=== PATIENT | female | born 1955 | race Caucasian/White ===

== ENCOUNTER 2018-10-13 11:30 | Inpatient (IN) | payer OTHER ==
[~2018-10-13] VITALS: Ht 167.6 cm; Wt 113.5 kg
[2018-10-13 13:13] VITALS: BP 148/65
[2018-10-13 13:14] LABS: BASOPHILS % (AUTO) 0.4 % (0.0-5.0); EOSINOPHILS % (AUTO) 1.3 % (0.0-8.0); HEMATOCRIT 37.3 % (36-48); LYMPHOCYTES % (AUTO) 19.6 % (21.0-51.0); MEAN CORPUSCULAR HEMOGLOBIN 27.3 pg (27.0-33.0); MEAN CORPUSCULAR HGB CONC 31.8 g/dL (32.0-36.0); MONOCYTES % (AUTO) 4.1 % (3.0-13.0); NEUTROPHILS % (AUTO) 74.6 % (40.0-77.0); PLATELET COUNT (AUTO) 245 K/uL (130-400); RED BLOOD CELL COUNT(AUTO) 4.33 MIL/uL (4.00-5.50); RED CELL DISTRIBUTION WIDTH 14.8 % (11.0-15.5); WHITE BLOOD COUNT (AUTO) 12.8 K/uL (4.8-10.8)
[2018-10-13 13:27] LABS: CREATININE 0.7 mg/dL (0.5-1.5); POTASSIUM 3.5 mmol/L (3.5-5.1)
[2018-10-13 13:29] LABS: INR 0.85 (0.85-1.15)
[2018-10-13] MEDS ORDERED: MONT10TA21 PO (15:23)
[2018-10-13] MEDS ORDERED: ROPI3TAB PO (15:23)
[2018-10-13] MEDS ORDERED: VENL75CA55 PO (15:23)
[2018-10-13] MEDS ORDERED: ESOMEPRAZOLE PO (15:23)
[2018-10-13] MEDS ORDERED: BUDE10.2 IH (15:23)
[2018-10-13] MEDS ORDERED: FLUTICASONE NASAL (15:23)
[2018-10-13] MEDS ORDERED: AMLO-334 PO (15:23)
[2018-10-13] MEDS ORDERED: SPIRIVA IH (15:23)
[2018-10-13] MEDS ORDERED: FEXO180T94 PO (15:23)
[2018-10-19] VITALS (28 sets, daily range): BP systolic 118–150; BP diastolic 45–83
[2018-10-19] MEDS: CEFAZOLIN SODIUM 1 GM VIAL IVP SCH ×4 (05:00→20:27)
[2018-10-19] MEDS ORDERED: LACTATED RINGERS 1000ML 1,000 ML IV ONE (09:06)
[2018-10-19] MEDS ORDERED: ROPIVACAINE 0.5% 5MG/ML 30ML IJ ONE ×2 (09:24→13:12)
[2018-10-19] MEDS ORDERED: KETAMINE 50MG/ML SYRINGE 50 MG/ML DISP.SYRIN IV ONE (09:25)
[2018-10-19] MEDS ORDERED: PROPOFOL 1000 MG/100 ML 100 ML IV ONE (09:28)
[2018-10-19] MEDS ORDERED: PROPOFOL 10 MG/ML 20ML VIAL IV ONE ×3 (09:35→12:15)
[2018-10-19] MEDS ORDERED: ROCURONIUM 10MG/1ML SYR 10 MG/ML ML ONE ×2 (09:36→10:53)
[2018-10-19] MEDS ORDERED: SUCCINYLCHOLINE CHLORIDE 20 MG/ML 10 ML VIAL ONE (09:36)
[2018-10-19] MEDS ORDERED: TRANEXAMIC ACID 1000MG/10ML IV ONE ×2 (09:40→13:36)
[2018-10-19] MEDS ORDERED: MIDAZOLAM HCL 1 MG/ML 2ML VIAL ONE (09:52)
[2018-10-19] MEDS ORDERED: FENTANYL CITRATE PF 50 MCG/1 ML 2ML VIAL ONE ×2 (09:52→12:30)
[2018-10-19] MEDS ORDERED: HYDROMORPHONE 1 MG/1 ML AMP ONE (12:36)
[2018-10-19] MEDS ORDERED: GLYCOPYRROLATE 1 MG/5 ML SYRINGE ONE (12:41)
[2018-10-19] MEDS ORDERED: NEOSTIGMINE 5MG/5ML SYR IV ONE (12:41)
[2018-10-19] MEDS ORDERED: SODIUM CHLORIDE 0.9% 1000ML 1,000 ML IV SCH (13:01)
[2018-10-19] MEDS ORDERED: LIDOCAINE HCL 2% 20ML ONE (13:11)
[2018-10-19] MEDS ORDERED: DiphenhydrAMINE HCL 50 MG/ML VIAL IVP PRN (13:15)
[2018-10-19] MEDS ORDERED: ONDANSETRON HCL 4 MG/2 ML VIAL IVP PRN (13:15)
[2018-10-19] MEDS ORDERED: CALCIUM CARBONATE 500 MG TABLET PO PRN (13:15)
[2018-10-19] MEDS ORDERED: TRAMADOL HCL 50 MG TABLET PO PRN (13:15)
[2018-10-19] MEDS ORDERED: OXYCODONE HCL 5 MG TAB PO PRN (13:15)
[2018-10-19] MEDS ORDERED: MEPERIDINE-PF 25 MG/ML SYG ONE (13:27)
[2018-10-19] MEDS: OXYCODONE HCL 5 MG TAB PO PRN ×2 (14:58→23:20)
[2018-10-19] MEDS: MONTELUKAST SODIUM 10 MG TAB PO SCH (20:33)
[2018-10-19] MEDS: APIXABAN 2.5 MG TABLET PO SCH (20:33)
[2018-10-19] MEDS: PREGABALIN 25 MG CAP PO SCH (20:36)
[2018-10-19] MEDS: ROPINIROLE HCL 1 MG TABLET PO SCH (20:36)
[2018-10-20] MEDS: CEFAZOLIN SODIUM 1 GM VIAL IVP SCH (02:45)
[2018-10-20] MEDS: OXYCODONE HCL 5 MG TAB PO PRN ×5 (03:05→22:00)
[2018-10-20 03:10] VITALS: BP 137/70
[2018-10-20 06:01] LABS: HEMATOCRIT 33.6 % (36-48); MEAN CORPUSCULAR HEMOGLOBIN 28.3 pg (27.0-33.0); MEAN CORPUSCULAR HGB CONC 32.8 g/dL (32.0-36.0); MEAN CORPUSCULAR VOLUME 86.3 fL (79-99); PLATELET COUNT (AUTO) 258 K/uL (130-400); RED BLOOD CELL COUNT(AUTO) 3.89 MIL/uL (4.00-5.50); RED CELL DISTRIBUTION WIDTH 15.2 % (11.0-15.5); WHITE BLOOD COUNT (AUTO) 12.3 K/uL (4.8-10.8)
[2018-10-20] MEDS: SPIRIVA 1.25 MCG IH SCH (06:10)
[2018-10-20] MEDS ORDERED: PRED10TA3 PO (06:13)
[2018-10-20] MEDS: FLUTICASONE PROPIONATE 50MCG/SPRAY 16 GM BOTTLE NS SCH (06:13)
[2018-10-20 06:18] LABS: CREATININE 0.8 mg/dL (0.5-1.5); POTASSIUM 4.1 mmol/L (3.5-5.1)
[2018-10-20] MEDS: PREDNISONE 10 MG TABLET PO SCH (08:55)
[2018-10-20] MEDS: VENLAFAXINE HCL 75 MG TAB PO SCH (08:56)
[2018-10-20] MEDS: PREGABALIN 25 MG CAP PO SCH ×2 (08:57→20:46)
[2018-10-20] MEDS: PANTOPRAZOLE SODIUM 40 MG TABLET.DR PO SCH (08:57)
[2018-10-20] MEDS: APIXABAN 2.5 MG TABLET PO SCH ×2 (08:58→20:46)
[2018-10-20] MEDS: POLYETHYLENE GLYCOL 3350 17 GM POWD.PACK PO SCH (08:58)
[2018-10-20] MEDS: LORATADINE 10 MG TABLET PO SCH (09:00)
[2018-10-20] MEDS: SYMBICORT 160-4.5 MCG INHALER IH SCH ×2 (09:00→20:46)
[2018-10-20] MEDS: AMLODIPINE VALSARTAN PO SCH (09:00)
[2018-10-20] MEDS: MORPHINE SULFATE 4 MG/1ML SYG IV PRN (09:05)
[2018-10-20 11:48] VITALS: BP 159/80
[2018-10-20 16:00] VITALS: BP 149/73
[2018-10-20 19:10] VITALS: BP 135/65
[2018-10-20] MEDS: ROPINIROLE HCL 1 MG TABLET PO SCH (20:47)
[2018-10-20] MEDS: MONTELUKAST SODIUM 10 MG TAB PO SCH (20:47)
[2018-10-20] MEDS: ZOLPIDEM TARTRATE 5 MG TAB PO PRN (22:54)
[2018-10-20 23:05] VITALS: BP 140/62
[2018-10-21] MEDS: MORPHINE SULFATE 4 MG/1ML SYG IV PRN (00:24)
[2018-10-21 03:15] VITALS: BP 154/68
[2018-10-21 04:14] LABS: BASOPHILS % (AUTO) 0.9 % (0.0-5.0); EOSINOPHILS % (AUTO) 1.9 % (0.0-8.0); HEMATOCRIT 30.4 % (36-48); LYMPHOCYTES % (AUTO) 30.9 % (21.0-51.0); MEAN CORPUSCULAR HEMOGLOBIN 27.7 pg (27.0-33.0); MEAN CORPUSCULAR HGB CONC 32.5 g/dL (32.0-36.0); MEAN CORPUSCULAR VOLUME 85.3 fL (79-99); NEUTROPHILS % (AUTO) 58.3 % (40.0-77.0); PLATELET COUNT (AUTO) 203 K/uL (130-400); RED BLOOD CELL COUNT(AUTO) 3.56 MIL/uL (4.00-5.50); RED CELL DISTRIBUTION WIDTH 14.8 % (11.0-15.5); WHITE BLOOD COUNT (AUTO) 11.9 K/uL (4.8-10.8)
[2018-10-21 04:27] LABS: CREATININE 0.8 mg/dL (0.5-1.5)
[2018-10-21] MEDS: CEFAZOLIN SODIUM 1 GM VIAL IVP SCH (05:00)
[2018-10-21 08:00] VITALS: BP 145/61
[2018-10-21] MEDS: VENLAFAXINE HCL 75 MG TAB PO SCH (08:50)
[2018-10-21] MEDS: LORATADINE 10 MG TABLET PO SCH (08:50)
[2018-10-21] MEDS: APIXABAN 2.5 MG TABLET PO SCH ×2 (08:50→20:29)
[2018-10-21] MEDS: POLYETHYLENE GLYCOL 3350 17 GM POWD.PACK PO SCH (08:50)
[2018-10-21] MEDS: OXYCODONE HCL 5 MG TAB PO PRN ×3 (08:51→20:36)
[2018-10-21] MEDS: AMLODIPINE VALSARTAN PO SCH (08:51)
[2018-10-21] MEDS: PREGABALIN 25 MG CAP PO SCH (08:52)
[2018-10-21] MEDS: FLUTICASONE PROPIONATE 50MCG/SPRAY 16 GM BOTTLE NS SCH (09:00)
[2018-10-21] MEDS: PANTOPRAZOLE SODIUM 40 MG TABLET.DR PO SCH (09:00)
[2018-10-21] MEDS: SPIRIVA 1.25 MCG IH SCH (09:00)
[2018-10-21] MEDS: PREDNISONE 10 MG TABLET PO SCH (09:00)
[2018-10-21] MEDS: SYMBICORT 160-4.5 MCG INHALER IH SCH ×2 (09:00→21:00)
[2018-10-21 11:00] VITALS: BP 122/62
[2018-10-21 16:00] VITALS: BP 117/54
[2018-10-21 19:05] VITALS: BP 118/60
[2018-10-21] MEDS: MONTELUKAST SODIUM 10 MG TAB PO SCH (20:29)
[2018-10-21] MEDS: ROPINIROLE HCL 1 MG TABLET PO SCH (21:00)
[2018-10-21] MEDS: ZOLPIDEM TARTRATE 5 MG TAB PO PRN (22:07)
[2018-10-21 23:55] VITALS: BP 136/73
[2018-10-22] MEDS: OXYCODONE HCL 5 MG TAB PO PRN ×3 (02:06→19:42)
[2018-10-22 03:15] VITALS: BP 134/73
[2018-10-22] MEDS: CEFAZOLIN SODIUM 1 GM VIAL IVP SCH (04:03)
[2018-10-22 04:48] LABS: BASOPHILS % (AUTO) 0.8 % (0.0-5.0); EOSINOPHILS % (AUTO) 3.3 % (0.0-8.0); HEMATOCRIT 29.1 % (36-48); LYMPHOCYTES % (AUTO) 23.3 % (21.0-51.0); MEAN CORPUSCULAR HEMOGLOBIN 28.8 pg (27.0-33.0); MEAN CORPUSCULAR HGB CONC 33.8 g/dL (32.0-36.0); MEAN CORPUSCULAR VOLUME 85.2 fL (79-99); MONOCYTES % (AUTO) 7.1 % (3.0-13.0); NEUTROPHILS % (AUTO) 65.5 % (40.0-77.0); PLATELET COUNT (AUTO) 200 K/uL (130-400); RED BLOOD CELL COUNT(AUTO) 3.41 MIL/uL (4.00-5.50); RED CELL DISTRIBUTION WIDTH 14.6 % (11.0-15.5); WHITE BLOOD COUNT (AUTO) 10.1 K/uL (4.8-10.8)
[2018-10-22 04:57] LABS: CREATININE 0.6 mg/dL (0.5-1.5); POTASSIUM 4.1 mmol/L (3.5-5.1)
[2018-10-22 07:00] VITALS: BP 134/73
[2018-10-22] MEDS: FLUTICASONE PROPIONATE 50MCG/SPRAY 16 GM BOTTLE NS SCH (09:00)
[2018-10-22] MEDS: PREDNISONE 10 MG TABLET PO SCH (09:00)
[2018-10-22] MEDS: SYMBICORT 160-4.5 MCG INHALER IH SCH ×2 (09:00→20:00)
[2018-10-22] MEDS: PANTOPRAZOLE SODIUM 40 MG TABLET.DR PO SCH (09:00)
[2018-10-22] MEDS: SPIRIVA 1.25 MCG IH SCH (09:00)
[2018-10-22] MEDS: AMLODIPINE VALSARTAN PO SCH (09:00)
[2018-10-22] MEDS: VENLAFAXINE HCL 75 MG TAB PO SCH (09:24)
[2018-10-22] MEDS: POLYETHYLENE GLYCOL 3350 17 GM POWD.PACK PO SCH (09:24)
[2018-10-22] MEDS: APIXABAN 2.5 MG TABLET PO SCH ×2 (09:25→20:02)
[2018-10-22] MEDS: LORATADINE 10 MG TABLET PO SCH (09:25)
[2018-10-22 11:00] VITALS: BP 133/54
[2018-10-22] MEDS ORDERED: BISACODYL 10 MG SUPP.RECT RC PRN (13:15)
[2018-10-22 16:00] VITALS: BP 124/72
[2018-10-22 19:20] VITALS: BP 124/54
[2018-10-22] MEDS: ROPINIROLE HCL 1 MG TABLET PO SCH (20:00)
[2018-10-22] MEDS: MONTELUKAST SODIUM 10 MG TAB PO SCH (20:02)
[2018-10-22 23:00] VITALS: BP 123/59
[2018-10-23] MEDS: OXYCODONE HCL 5 MG TAB PO PRN ×2 (00:11→07:45)
[2018-10-23 03:00] VITALS: BP 132/59
[2018-10-23] MEDS: CEFAZOLIN SODIUM 1 GM VIAL IVP SCH (04:09)
[2018-10-23 07:50] VITALS: BP 125/60
[2018-10-23] MEDS: LORATADINE 10 MG TABLET PO SCH (08:53)
[2018-10-23] MEDS: PANTOPRAZOLE SODIUM 40 MG TABLET.DR PO SCH (08:53)
[2018-10-23] MEDS: POLYETHYLENE GLYCOL 3350 17 GM POWD.PACK PO SCH (08:53)
[2018-10-23] MEDS: VENLAFAXINE HCL 75 MG TAB PO SCH (08:53)
[2018-10-23] MEDS: APIXABAN 2.5 MG TABLET PO SCH (08:53)
[2018-10-23] MEDS: PREDNISONE 10 MG TABLET PO SCH (08:53)
== END 2018-10-23 10:10 | disposition home or self-care (01) | DRG 470 ==
LOC: EDSTATUS 11:30 → DAHIP 10-19 08:28 → 4AH 10-19 13:36
PROVIDERS: ADMIT Orthopaedic Surgery; ATTEND Orthopaedic Surgery
PROC: 0SRD0J9 Replacement of Left Knee Joint with Synthetic Substitute, Cemented, Open Approach (ICD-10-PCS; principal; 2018-10-19 10:12)
PROC: 3E0T3BZ Introduction of Anesthetic Agent into Peripheral Nerves and Plexi, Percutaneous Approach (ICD-10-PCS; 2018-10-19 10:12)
DX: M17.12 Unilateral primary osteoarthritis, left knee (principal); Z68.41 Body mass index [BMI] 40.0-44.9, adult; I10 Essential (primary) hypertension; F32.9 Major depressive disorder, single episode, unspecified; G25.81 Restless legs syndrome; G47.00 Insomnia, unspecified; J45.909 Unspecified asthma, uncomplicated; M65.9 Synovitis and tenosynovitis, unspecified; E66.01 Morbid (severe) obesity due to excess calories; M77.11 Lateral epicondylitis, right elbow; Z82.0 Family history of epilepsy and other diseases of the nervous system; Z82.3 Family history of stroke; Z82.49 Family history of ischemic heart disease and other diseases of the circulatory system; Z88.8 Allergy status to other drugs, medicaments and biological substances
CPT/HCPCS: 36415; 71045; 80048; 85025; 85027; 85610; 85730; 86850; 86900; 86901; 88305; 88311; 93005; 97039; J0330; J0690; J1170; J2175; J2250; J2270; J2704; J2710; J2795; J3010; J3490; J7030; J7120; J7512

== ENCOUNTER 2019-09-02 10:15 | Emergency (ER) | payer OTHER ==
[~2019-09-02 10:15] MED LIST: AMLO-334 PO; BUDE10.2 IH; ESOMEPRAZOLE PO; FEXO180T94 PO; FLUTICASONE NASAL; MONT10TA21 PO; ROPI3TAB PO; SPIRIVA IH; VENL75CA55 PO
== END 2019-09-02 11:15 | disposition home or self-care (01) ==
LOC: EDH 10:15
DX: S90.31XA Contusion of right foot, initial encounter (principal); I10 Essential (primary) hypertension; J45.909 Unspecified asthma, uncomplicated; Z90.49 Acquired absence of other specified parts of digestive tract; Z88.8 Allergy status to other drugs, medicaments and biological substances; W20.8XXA Other cause of strike by thrown, projected or falling object, initial encounter; Y93.89 Activity, other specified; Y92.89 Other specified places as the place of occurrence of the external cause; Y99.8 Other external cause status
CPT/HCPCS: 73630

== ENCOUNTER → 2019-09-07 | Outpatient (CLI) | payer OTHER | END | disposition home or self-care (01) | LOC: RAH 14:45 | PROVIDERS: ATTEND Internal Medicine | DX: Z12.31 Encounter for screening mammogram for malignant neoplasm of breast (principal) | CPT/HCPCS: 77067 ==

== ENCOUNTER → 2020-09-08 | Outpatient (CLI) | payer OTHER ==
[~2020-09-08] MED LIST changes: -AMLO-334 PO; +AMLO-389 PO
== END | disposition home or self-care (01) ==
LOC: RAH 15:22
PROVIDERS: ATTEND Internal Medicine
DX: Z12.31 Encounter for screening mammogram for malignant neoplasm of breast (principal); N64.89 Other specified disorders of breast
CPT/HCPCS: 77067

== ENCOUNTER 2021-02-12 07:35 | Day surgery (SDC) | payer OTHER ==
[2021-02-09 13:16] LABS: BASOPHILS % (AUTO) 0.4 % (0.0-5.0); EOSINOPHILS % (AUTO) 3.3 % (0.0-8.0); HEMATOCRIT 37.7 % (36-48); LYMPHOCYTES % (AUTO) 28.5 % (21.0-51.0); MEAN CORPUSCULAR HEMOGLOBIN 26.5 pg (27.0-33.0); MEAN CORPUSCULAR HGB CONC 31.6 g/dL (32.0-36.0); MONOCYTES % (AUTO) 5.8 % (3.0-13.0); NEUTROPHILS % (AUTO) 61.4 % (40.0-77.0); PLATELET COUNT (AUTO) 242 K/uL (130-400); RED BLOOD CELL COUNT(AUTO) 4.49 MIL/uL (4.00-5.50); RED CELL DISTRIBUTION WIDTH 14.8 % (11.0-15.5)
[2021-02-09 13:23] LABS: CREATININE 0.7 mg/dL (0.5-1.5); POTASSIUM 4.1 mmol/L (3.5-5.1)
[2021-02-09 13:26] LABS: INR 0.93 (0.85-1.15); PROTHROMBIN TIME 10.2 SEC (9.6-11.6)
[2021-02-09 13:28] LABS: PARTIAL THROMBOPLASTIN TIME 25.3 SEC (26.3-35.5)
[~2021-02-12] VITALS: Ht 170.2 cm; Wt 116.0 kg
[2021-02-12] VITALS (9 sets, daily range): BP systolic 111–135; BP diastolic 55–70
[~2021-02-12 07:35] MED LIST changes: -BUDE10.2 IH; -ESOMEPRAZOLE PO; -FEXO180T94 PO; -FLUTICASONE NASAL; -MONT10TA21 PO; -SPIRIVA IH; -VENL75CA55 PO
[2021-02-12] MEDS ORDERED: SODIUM CHLORIDE 0.9% 1000ML 1,000 ML IV ONE (08:06)
[2021-02-12] MEDS ORDERED: MEPERIDINE-PF 25 MG/ML SYG ONE ×2 (09:26→11:17)
[2021-02-12] MEDS ORDERED: LIDOCAINE HCL 2% 20ML ONE (09:26)
[2021-02-12] MEDS ORDERED: HEPARIN SODIUM 1000UNIT/ML 10ML VIAL ONE (09:26)
[2021-02-12] MEDS ORDERED: MIDAZOLAM HCL 1 MG/ML 2ML VIAL ONE ×2 (09:26→11:16)
[2021-02-12] MEDS ORDERED: ADENOSINE 3 MG/ML 2ML VIAL IV ONE (10:36)
[2021-02-12] MEDS ORDERED: ISOPROTERENOL HCL 0.2 MG/ML AMP/VIAL/BAG ONE (10:43)
[2021-02-12] MEDS ORDERED: ESOM40CA54 PO (12:12)
[2021-02-12] MEDS ORDERED: METO25PO2 MC (12:12)
[2021-02-12] MEDS ORDERED: PROP225C8 PO (12:12)
[2021-02-12] MEDS ORDERED: AZEL23SP2 NS (12:15)
[2021-02-12] MEDS ORDERED: ALBU0.63 IH (12:15)
[2021-02-12] MEDS ORDERED: BUDE10.2 IH (12:15)
== END 2021-02-12 15:10 | disposition home or self-care (01) ==
LOC: CLH 07:35 → DAH 07:35 → CLH 15:10
PROVIDERS: ATTEND Internal Medicine Cardiovascular Disease
DX: I47.1 Supraventricular tachycardia (principal); Z79.01 Long term (current) use of anticoagulants; Z79.899 Other long term (current) drug therapy; Z98.890 Other specified postprocedural states
CPT/HCPCS: 36415; 80048; 85025; 85610; 85730; 93613; 93621; 93623; 93653; A4215; A4216; A4221; A4222; A4223 ×3; A4606; A4649 ×2; A4663; C1730 ×4; C1732; C1894 ×5; J0153; J1644 ×2; J2175 ×2; J2250 ×2; J3490 ×2; J7030; 99156; 99157

== ENCOUNTER → 2021-04-01 | Outpatient (CLI) | payer OTHER ==
[~2021-04-01] MED LIST changes: +ALBU0.63 IH; +AZEL23SP2 NS; +BUDE10.2 IH; +ESOM40CA54 PO; +METO25PO2 MC; +PROP225C8 PO
== END | disposition home or self-care (01) ==
LOC: RAH 08:00
PROVIDERS: ATTEND Internal Medicine
DX: K57.32 Diverticulitis of large intestine without perforation or abscess without bleeding (principal); M51.37 Other intervertebral disc degeneration, lumbosacral region; Z90.49 Acquired absence of other specified parts of digestive tract
CPT/HCPCS: 74176

== ENCOUNTER → 2021-08-19 | Outpatient (CLI) | payer OTHER | END | disposition home or self-care (01) | LOC: RAH 11:06 | PROVIDERS: ATTEND Internal Medicine | DX: K76.0 Fatty (change of) liver, not elsewhere classified (principal); K57.30 Diverticulosis of large intestine without perforation or abscess without bleeding; N32.89 Other specified disorders of bladder; Z90.49 Acquired absence of other specified parts of digestive tract | CPT/HCPCS: 74176 ==

== ENCOUNTER → 2022-08-03 | Outpatient (CLI) | payer MEDICARE | END | disposition home or self-care (01) | LOC: RAH 09:50 | PROVIDERS: ATTEND Internal Medicine | DX: Z11.1 Encounter for screening for respiratory tuberculosis (principal) | CPT/HCPCS: 71046 ==

== ENCOUNTER → 2022-08-24 | Outpatient (CLI) | payer MEDICARE | END | disposition home or self-care (01) | LOC: RAH 10:02 | PROVIDERS: ATTEND Internal Medicine | DX: Z12.31 Encounter for screening mammogram for malignant neoplasm of breast (principal) | CPT/HCPCS: 77067 ==

== ENCOUNTER → 2023-08-30 | Outpatient (CLI) | payer MEDICARE | END | disposition home or self-care (01) | LOC: RAH 11:05 | PROVIDERS: ATTEND Internal Medicine | DX: Z12.31 Encounter for screening mammogram for malignant neoplasm of breast (principal) | CPT/HCPCS: 77067 ==